=== PATIENT | female | born 1975 | race Caucasian/White ===

== ENCOUNTER → 2018-11-19 | Outpatient (CLI) | payer OTHER ==
[2018-11-19 19:11] LABS: URINE PROTEIN (MG/DL) 6.9 mg/dL (Not Estab.)
== END ==
LOC: M.LAB 08:51
DX: Z52.4 Kidney donor (principal)

== ENCOUNTER → 2019-01-13 | Outpatient (CLI) | payer OTHER ==
--- NOTE | 2019-01-13 09:48 | EKG ---
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 : 1975 Requested By: Physician staff Order Number: [id number] Bree MD: Rene Rodriguez Measurements Intervals [place] Rate: 68 P: 36 MI: 188 QRS: 16 QRSD: 85 T: 31 QT: 395 QTc: 421 Interpretive Statements Sinus rhythm Abnormal R-wave progression, early transition Compared to ECG 08/24/2014 21:40:15 Sinus arrhythmia no longer present Electronically Signed On 01-13-2019 9:48:30 CDT by Rene Rodriguez [email or web address] <ELECTRONICALLY SIGNED> By: Rene Rodriguez MD, [facility] 01/13/19 0948 6 6 Rene Rodriguez MD, FACC /EPI
== END ==
LOC: M.RAD 08:31 → M.LAB 08:31
DX: Z52.4 Kidney donor (principal)

== ENCOUNTER → 2019-02-01 | Outpatient (CLI) | payer OTHER ==
--- NOTE | 2019-02-01 14:56 | 2DMMODE ---
[place] [address] 2 D/M-MODE ECHOCARDIOGRAM Name: XENA HYDE Room: [facility]#: [id number] Admission: 02/01/19 Attend Phys: Physician not on s Discharge: Date of : 77 Date of Service: 02/01/19 1456 Report #: [id number] THIS REPORT FOR: //name// APPROVED REPORT Study performed: 02/01/2019 08:22:16 EXAM: Comprehensive 2D, Doppler, and color-flow Echocardiogram Patient Location: Out-Patient BSA: 1.85 HR: 85 bpm BP: 130/80 mmHg Other Information Study Quality: Good Indications Borderline HTN, Kidney Donor 2D Dimensions IVSd: 9.98 (7-11mm) LVOT Diam: 20.88 (18-24mm) LVDd: 44.53 mm PWd: 9.92 (7-11mm) Ascending Ao: 30.96 (22-36mm) LVDs: 31.49 (25-40mm) Aortic Root: 27.81 mm Volumes Left Atrial Volume (Systole) LA ESV Index: 19.00 mL/m2 Aortic Valve AoV Peak Harry.: 1.12 m/s AO Peak Gr.: 5.06 mmHg LVOT Max P.48 mmHg AO Mean Gr.: 3.00 mmHg LVOT Mean P.09 mmHg LVOT Max V: 0.79 m/s AO V2 VTI: 23.36 cm LVOT Mean V: 0.47 m/s JYOTI (VTI): 2.24 cm2 LVOT V1 VTI: 15.31 cm Mitral Valve E/A Ratio: 0.90 MV Decel. Time: 213.41 ms MV E Max Harry.: 0.63 m/s MV PHT: 61.89 ms MVA (PHT): 3.55 [place]2 [place] [address] 2 D/M-MODE ECHOCARDIOGRAM Name: XENA HYDE Room: [facility]#: [id number] Admission: 02/01/19 Attend Phys: Physician not on s Discharge: Date of : 77 Date of Service: 02/01/19 1456 Report #: [id number] TDI E/Lateral E': 6.30 E/Medial E': 9.00 Medial E' Harry.: 0.07 m/s Lateral E' Harry.: 0.10 m/s Pulmonary Valve PV Peak Harry.: 1.01 m/s PV Peak Gr.: 4.12 mmHg Left Ventricle The left ventricle is normal size. There is normal LV segmental wall motion. There is normal left ventricular wall thickness. Left ventricular systolic function is normal. LVEF is 55-60%. Transmitral Doppler flow pattern suggests impaired LV relaxation. Right Ventricle The right ventricle is normal size. The right ventricular systolic function is normal. Atria The left atrium size is normal. The right atrium size is normal. Aortic Valve The aortic valve is normal in structure. No aortic regurgitation is present. There is no aortic valvular stenosis. Mitral Valve The mitral valve is normal in structure. There is no mitral valve regurgitation noted. No evidence of mitral valve stenosis. Tricuspid Valve The tricuspid valve is normal in structure. There is no tricuspid valve regurgitation noted. Pulmonic Valve The pulmonary valve is normal in structure. There is no pulmonic valvular regurgitation. Great Vessels The aortic root is normal in size. IVC is normal in size and collapses >50% with inspiration. Pericardium There [place] [address] 2 D/M-MODE ECHOCARDIOGRAM Name: XENA HYDE Room: [facility]#: [id number] Admission: 02/01/19 Attend Phys: Physician not on s Discharge: Date of : 77 Date of Service: 02/01/19 1456 Report #: [id number] <Conclusion> The left ventricle is normal size. There is normal left ventricular wall thickness. Left ventricular systolic function is normal. LVEF is 55-60%. Transmitral Doppler flow pattern suggests impaired LV relaxation. IVC is normal in size and collapses >50% with inspiration. <ELECTRONICALLY SIGNED> By: Rene Rodriguez MD, FACC 02/01/19 1456 1456 1456 Rene Rodriguez MD, FACC /INF
== END ==
LOC: M.CRD 08:00
DX: Z52.4 Kidney donor (principal); R03.0 Elevated blood-pressure reading, without diagnosis of hypertension